=== PATIENT | male | born 1950 | race Caucasian/White ===

== ENCOUNTER 2017-05-23 21:37 | Inpatient (IN) | payer OTHER ==
[~2017-05-23] VITALS: Ht 177.8 cm; Wt 73.2 kg
--- NOTE | ~2017-05-23 | S ---
[facility] [place] [address] SURGICAL PATH RPT PROCEDURE Name: NICO MCCARTY Room #: 443-P [facility] IN M.R.#: [id number] Admission: 05/23/17 Date of : 54 Discharge: 05/25/17 Report #: [id number] Path Case #: [id number] PATHOLOGY REPORT COLLECTION DATE: 05/24/2017 RECEIVED DATE: 05/24/2017 SUBMITTING PHYS: Dr. Benitez Aldrich OTHER PHYS: Dr. Alberto Cerrato SPECIMEN(S) RECEIVED: A.Bx of esophagus at 27 cm * * * * * * * * * * * * FINAL DIAGNOSIS: "BX of esophagus at 27 cm", biopsy: - Gastric cardia-type mucosa with reactive/regenerative changes and acute and chronic inflammation with intestinal metaplasia, compatible with Vee's mucosa; no dysplasia is seen (see comment). (CLW:lesli; d/t: 05/26/2017) COMMENT: The case is co-reviewed with Dr. Lyudmila Polk. Clinical and endoscopic correlation is required. PATHOLOGIST: Josefina Ibarra M.D. REPORT ELECTRONICALLY SIGNED BY: Josefina Ibarra M.D. DATE/TIME: 05/26/2017 17:05 * * * * * * * * * * * * GROSS PATHOLOGY: Received in formalin labeled "Nico Mccarty, BX of esophagus at 27 cm," are 2 segments of white to gregg soft tissue measuring 0.7 x 0.2 x 0.1 cm in aggregate dimensions and ranging from 0.3 to 0.4 cm in maximum dimension. The specimen is submitted entirely in cassette A1. (JUSTA; 05/25/2017) CLINICAL HISTORY: Abdominal pain, ascites INITIAL CPT CODE(S): A; 64748 [facility] [address], [place] [address] [facility] [address] [place] [address] SURGICAL PATH RPT PROCEDURE Name: NICO MCCARTY Room #: 443-P [facility] IN ..#: [id number] Admission: 05/23/17 Date of : 54 Discharge: 05/25/17 Report #: [id number] Path Case #: [id number] Technical services performed by [facility] at [address] [place] [address], [place] [address]. [place] [address] PHONE: [phone] DIRECTOR: Dany Elliott M.D. * * * END OF REPORT * * *
--- NOTE | ~2017-05-23 | CNG ---
[facility] [place] [address] CYTO-NONGYN REPORT PROCEDURE Name: NICO MCCARTY Room #: 443-P [facility] IN M.R.#: [id number] Admission: 05/23/17 Date of : 54 Discharge: 05/25/17 Report #: [id number] Path Case #: [id number] CYTOPATHOLOGY REPORT COLLECTION DATE: 05/24/2017 RECEIVED DATE: 05/24/2017 SUBMITTING PHYS: Dr. Alberto Cerrato OTHER PHYS: CLINICAL HISTORY: ABD pain, cirrhosis, ascites, elevated LFT's. SPECIMEN(S) RECEIVED: A.Abdominal fluid * * * * * * * * * * * * FINAL DIAGNOSIS: A. Abdominal fluid: - No malignant cells identified. Few reactive mesothelial cells and inflammatory cells are present in a background of debris. PATHOLOGIST: Lyudmila Polk M.D. REPORT ELECTRONICALLY SIGNED BY: Lyudmila Polk M.D. DATE/TIME: 05/25/2017 15:40 * * * * * * * * * * * * GROSS PATHOLOGY: A. Abdominal fluid: The specimen is submitted unfixed, labeled "Nico Mccarty". Received by the Cytology Department is 30 mL of cloudy yellow fluid. One ThinPrep slide and a cell block were prepared. (clt 05.24.2017) CHIEF PAYROLL CLERK(S): GALINA Aguirre([facility] INITIAL CPT CODE(S): A; [id number] [place] [address] Professional services performed by [facility] at [facility] [address], [place] [address] [facility] performed by [facility] at [address] [place] [address]., [address], [place] [address]. [facility] [address] [place] [address], [facility] [address] [place] [address] PHONE: [phone] [facility] [address] [place] [address] CYTO-NONGYN REPORT PROCEDURE Name: GERARDONICO Edith Room #: 443-P [facility] IN .R.#: [id number] Admission: 05/23/17 Date of : 54 Discharge: 05/25/17 Report #: [id number] Path Case #: [id number] DIRECTOR: Dany Elliott M.D. * * * END OF REPORT * * *
[2017-05-23 21:38] VITALS: BP 164/74
[2017-05-23] MEDS ORDERED: LASIX 20 MG TAB20 MG PO (21:51)
[2017-05-23] MEDS ORDERED: ALDACTONE25 MG PO (21:51)
[2017-05-23] MEDS ORDERED: VITAMIN D3400 UNIT PO (21:52)
[2017-05-23] MEDS ORDERED: ALDACTONE50 MG PO (21:52)
[2017-05-23] MEDS ORDERED: K-DUR 20 MEQ T20 MEQ PO (21:53)
[2017-05-23] MEDS ORDERED: DULCOLAX5 MG PO (21:54)
[2017-05-23] MEDS ORDERED: OXYCODONE HCL15 MG PO (21:54)
[2017-05-23] MEDS ORDERED: ENULOSE10 GM/15 M PO (21:55)
[2017-05-23 22:18] LABS: HEMATOCRIT 34.6 % (42.0-52.0); MCH 37.2 pg (26.0-34.0); MCHC 34.8 g/dL (28.0-37.0); MCV 106.9 fL (80.0-100.0); PLATELET COUNT 88 thou/uL (150-400); RBC 3.24 mil/uL (4.50-6.00); RDW 13.5 % (10.5-14.5)
[2017-05-23 22:33] LABS: APTT 26.5 Seconds (24.5-32.8); INR 1.3; PROTIME 13.5 Seconds (9.3-11.4)
[2017-05-23 22:39] LABS: CALCIUM 8.7 mg/dL (8.5-10.1); CREATININE 1.1 mg/dL (0.7-1.3); MANUAL DIFF YES; POTASSIUM 4.1 mmol/L (3.5-5.1)
[2017-05-23 22:43] LABS: ALBUMIN 1.8 g/dL (3.4-5.0); DIRECT BILIRUBIN 4.3 mg/dL (<0.1-0.3); TOTAL BILIRUBIN 5.2 mg/dL (<0.1-1.0)
[2017-05-23 23:00] LABS: TOTAL PROTEIN 6.7 g/dL (6.4-8.2)
[2017-05-23 23:08] LABS: ABSOLUTE NEUTROPHILS 4.1 thou/uL (1.4-8.2); TOTAL CELL COUNT 100
[2017-05-23 23:09] LABS: MACROCYTES 2+; PLATELET ESTIMATE DECREASED
[2017-05-23 23:42] LABS: URINE BILIRUBIN 1+ (Negative); URINE BLOOD 1+ (Negative); URINE COLOR YELLOW; URINE GLUCOSE-RANDOM* NEGATIVE (Negative); URINE KETONES TRACE (Negative); URINE NITRITE NEGATIVE (Negative); URINE PROTEIN (DIPSTICK) NEGATIVE (Negative); URINE SPECIFIC GRAVITY <= 1.005 (1.003-1.035)
[2017-05-23 23:58] LABS: ICTOTEST (BILI CONFIRMATORY) Positive (Negative)
[2017-05-23 23:59] LABS: BACTERIA None Seen /HPF (None Seen); CASTS None Seen /LPF (None Seen); SQUAMOUS None Seen /LPF (0-3); URINE RBC 0-2 Rare /HPF (0-2); URINE WBC None Seen /HPF (0-5)
[2017-05-24 00:11] VITALS: BP 139/67
[2017-05-24 00:12] LABS: CALCIUM OXALATE 4-10 Moderate /LPF (None Seen)
[2017-05-24 00:16] LABS: CRYSTALS None Seen /LPF (None Seen)
[2017-05-24 00:24] VITALS: BP 146/78
[2017-05-24] MEDS ORDERED: MAGOX 400400 MG PO (00:44)
[2017-05-24] MEDS ORDERED: OXYCODONE HCL 55 MG PO (00:45)
[2017-05-24 04:15] VITALS: BP 116/69
[2017-05-24 05:59] LABS: HEMOGLOBIN 9.6 gm/dL (14.0-18.0); MCH 37.2 pg (26.0-34.0); MCHC 34.3 g/dL (28.0-37.0); MCV 108.6 fL (80.0-100.0); RBC 2.58 mil/uL (4.50-6.00); RDW 13.3 % (10.5-14.5)
[2017-05-24 06:18] LABS: ALBUMIN 1.5 g/dL (3.4-5.0); CALCIUM 7.9 mg/dL (8.5-10.1); DIRECT BILIRUBIN 3.6 mg/dL (<0.1-0.3); TOTAL BILIRUBIN 4.5 mg/dL (<0.1-1.0)
[2017-05-24 06:30] LABS: TOTAL PROTEIN 5.7 g/dL (6.4-8.2)
[2017-05-24 08:00] VITALS: BP 113/60
[2017-05-24 10:57] LABS: CLARITY CLEAR; COLOR YELLOW; TOTAL VOLUME 60 mL
[2017-05-24 11:42] LABS: BF NUCLEATED CELLS 97; BF RBC 174
[2017-05-24 13:14] LABS: BF MACROPHAGE 89; BF NEUTROPHILS 8; MANUAL DIFF YES
[2017-05-24 16:00] VITALS: BP 105/56
[2017-05-24 19:22] VITALS: BP 114/60
[2017-05-25 03:24] LABS: ABSOLUTE NEUTROPHILS 3.2 thou/uL (1.4-8.2); BASOPHILS 0.8 % (0.0-2.0); EOSINOPHILS 1.2 % (0.0-3.0); LYMPHOCYTES 27.3 % (24.0-44.0); MCH 36.8 pg (26.0-34.0); MCHC 34.6 g/dL (28.0-37.0); MCV 106.3 fL (80.0-100.0); MONOCYTES 10.5 % (1.0-8.0); PLATELET COUNT 75 thou/uL (150-400); POLYS 60.2 % (36.0-66.0); RBC 2.72 mil/uL (4.50-6.00); RDW 13.1 % (10.5-14.5); WBC 5.3 thou/uL (4.0-11.0)
[2017-05-25 03:33] LABS: MANUAL DIFF NO
[2017-05-25 03:34] LABS: CALCIUM 8.1 mg/dL (8.5-10.1); CREATININE 1.1 mg/dL (0.7-1.3); POTASSIUM 4.2 mmol/L (3.5-5.1)
[2017-05-25 04:36] VITALS: BP 99/53
[2017-05-25 08:00] VITALS: BP 105/65
[2017-05-25] MEDS ORDERED: PROPRANOLOL 1010 MG PO (09:37)
[2017-05-25 17:07] LABS: BODY FLUID ALBUMIN 0.3 g/dL (()); BODY FLUID AMYLASE 12 U/L (()); BODY FLUID GLUCOSE 102 mg/dL (()); BODY FLUID LDH 44 IU/L (()); BODY FLUID PROTEIN 0.6 g/dL (())
== END 2017-05-25 14:10 | DRG 432 ==
LOC: ER 21:37 → EROBS 23:29 → 4S 23:29
PROVIDERS: Emergency Medicine; Family Medicine; Nurse Practitioner Family
PROC: 0DB58ZX Excision of Esophagus, Via Natural or Artificial Opening Endoscopic, Diagnostic (ICD-10-PCS; principal; 2017-05-24)
PROC: 0W9G3ZZ Drainage of Peritoneal Cavity, Percutaneous Approach (ICD-10-PCS; 2017-05-24)
DX: K70.31 Alcoholic cirrhosis of liver with ascites (principal); E43 Unspecified severe protein-calorie malnutrition; I85.10 Secondary esophageal varices without bleeding; K76.6 Portal hypertension; G31.2 Degeneration of nervous system due to alcohol; I10 Essential (primary) hypertension; D69.6 Thrombocytopenia, unspecified; E78.5 Hyperlipidemia, unspecified; F10.10 Alcohol abuse, uncomplicated; K31.89 Other diseases of stomach and duodenum; K22.70 Barrett's esophagus without dysplasia; K44.9 Diaphragmatic hernia without obstruction or gangrene; Z79.899 Other long term (current) drug therapy; Z87.442 Personal history of urinary calculi; Z68.23 Body mass index [BMI] 23.0-23.9, adult
CPT/HCPCS: 10100; 62110; 62900; 70005